=== PATIENT | female | born 1950 | race Caucasian/White ===

== ENCOUNTER → 2021-01-14 10:25 | Outpatient (CLI) | payer MEDICARE, SELFPAY ==
--- NOTE | ~2021-01-14 | MM_ITS ---
EXAMINATION: MM screening sanjeev BI w saúl HISTORY: Screening mammogram TECHNIQUE: Craniocaudal and mediolateral oblique 3-D tomosynthesis images were obtained and synthetic 2-D images were generated. CAD analysis was submitted and interpreted. COMPARISON: 09/12/2016 through 01/25/2009 mammogram examinations BREAST PARENCHYMAL COMPOSITION: There are scattered areas of fibroglandular density. FINDINGS: Scattered benign calcifications are again noted. Grouped indeterminate irregular microcalcifications are noted in the posterior mid inner left breast; diagnostic left mammogram is recommended, with ultrasound if required. Otherwise there is no evidence of suspicious mass, calcification, or architectural distortion to sugg est malignancy in either breast. There has been no suspicious interval change. IMPRESSION: 1. Grouped indeterminate microcalcifications in the posterior mid inner left breast 2. Diagnostic left mammogram with magnification views is recommended, with ultrasound if required BI-RADS Category 0: Incomplete: Needs additional imaging evaluation. Reviewed, dictated and finalized at location A. [employer] IMPRESSION: 1. Grouped indeterminate microcalcifications in the posterior mid inner left br east 2. Diagnostic left mammogram with magnification views is recommended, with ultr asound if required BI-RADS Category 0: Incomplete: Needs additional imaging evaluation.
== END ==
PROVIDERS: PCP Internal Medicine; Visit Provider Internal Medicine
DX: Z12.31 Encounter for screening mammogram for malignant neoplasm of breast (principal); R92.8 Other abnormal and inconclusive findings on diagnostic imaging of breast
CPT/HCPCS: 77063; 77067

== ENCOUNTER 2022-02-09 13:32 | Outpatient (CLI) | payer MEDICARE, SELFPAY ==
--- NOTE | ~2022-02-09 | DEXA_ITS ---
Bone Density Report Name: RAMON QUIGLEY Age: 72 Sex: Female Ethnicity: White Date of : 1950 Indication: postmenopausal; screening for osteoporosis; height loss; hysterectomy; Referring Provider: CLAUDIO SARKAR Study: Bone densitometry was performed. Exam Date: February 09, 2022 Accession number: [id number] Bone Density: Region BMD T-score Z-score Classification AP Spine(L1-L4) 1.150 0.9 3.2 Normal Femoral Neck (Left) 0.758 -0.8 1.1 Normal Total Hip (Left) 0.958 0.1 1.8 Normal Femoral Neck (Right) 0.820 -0.3 1.7 Normal Total Hip (Right) 0.998 0.5 2.1 Normal Total Hip Mean 0.978 0.3 2.0 Normal World Health Organization criteria for BMD impression classify patients as: Normal (T-score at or above -1.0), Osteopenia (T-score between -1.0 and -2.5), or Osteoporosis (T-score at or below -2.5). 10-year Fracture Risk: FRAX not reported because: All T-scores for Spine Total, Hip Total, Femoral Neck at or above -1.0 Clinical Information Provided by Patient: Has used the following medications: Vitamin D Has the following medical conditions: Hysterectomy Patient maximum height was 64 Menopause Age: 58 No regular weight bearing exercise Does not regularly consume dairy products Drinks caffeinated beverages Onset of menses at age 14 Number of children 3 Impression: The patient has normal bone mass. Discussion: BONE DENSITY IS ABOVE THE MINIMUM DESIRABLE LEVEL AT ALL SKELETAL SITES TESTED. This patient?s bone mineral density is above the minimum desirable level (T-score -1.0 or better) at all sites measured. The patient should follow a healthful lifestyle (good nutrition with adequate calcium and vitamin D, and appropriate weight-bearing exercise). Follow-Up: Consider repeating this study in 5 years or sooner if there is some new clinical indication. Reported by: MALIA on 02/09/2022 2:01:00 PM. Reviewed, dictated and finalized at location AZachary MUELLER
== END 2022-02-09 13:33 | disposition home or self-care (01) ==
LOC: ANHIMG 13:36
PROVIDERS: PCP Family Medicine; Visit Provider Internal Medicine Endocrinology, Diabetes & Metabolism
DX: Z78.0 Asymptomatic menopausal state (principal)
CPT/HCPCS: 77080

== ENCOUNTER → 2022-08-10 15:15 | Outpatient (CLI) | payer MEDICARE, SELFPAY ==
--- NOTE | ~2022-08-10 | MM_ITS ---
EXAMINATION: MM screening sanjeev BI w saúl HISTORY: Screening mammogram TECHNIQUE: Craniocaudal and mediolateral oblique 3-D tomosynthesis images were obtained and synthetic 2-D images were generated. CAD analysis was submitted and interpreted. COMPARISON: 01/14/2021, 09/15/2016 bilateral screening mammogram examinations BREAST PARENCHYMAL COMPOSITION: There are scattered areas of fibroglandular density. FINDINGS: Scattered bilateral benign calcifications. Grouped microcalcifications in the posterior mid to lower inner left breast are stable. There is no evidence of suspicious mass, calcification, or ar chitectural distortion to suggest malignancy in either breast. There has been no suspicious interval change. IMPRESSION: 1. No mammographic evidence of malignancy. 2. Recommend routine screening mammography in one year. BI-RADS Category 2: Benign finding(s). Reviewed, dictated and finalized at location A.
== END ==
PROVIDERS: PCP Family Medicine; Visit Provider Family Medicine
DX: Z12.31 Encounter for screening mammogram for malignant neoplasm of breast (principal)
CPT/HCPCS: 77063; 77067

== ENCOUNTER → 2022-11-28 09:39 | Outpatient (CLI) | payer MEDICARE, SELFPAY ==
--- NOTE | ~2022-11-28 | XR_ITS ---
Right Knee Technique: AP, lateral, and sunrise views were obtained. Clinical History: Pain Findings: No fracture or dislocation is seen. Osseous alignment is anatomic. There is medial compartm ent narrowing, with moderate tricompartmental osteophyte formation. There is probable patellofemoral compartment narrowing.. Soft tissues are unremarkable. No joint effusion is seen. Impression: Moderate to advanced tricompartmental osteoarthritis. Reviewed, dictated and finalized at location M. Impression: Moderate to advanced tricompartmental osteoarthritis.
== END ==
PROVIDERS: PCP Family Medicine; Visit Provider Family Medicine
DX: M17.11 Unilateral primary osteoarthritis, right knee (principal)
CPT/HCPCS: 73564

== ENCOUNTER 2023-01-05 09:00 | Outpatient (RCR) | payer MEDICARE, SELFPAY ==
--- NOTE | 2022-12-20 08:54 | OPREHPOC ---
Outpatient Therapy Plan of Care This is a Multidisciplinary Plan of Care that may contain components documented by all disciplines (PT, OT, and ST.) PT Problem 1 PT Problem #1 Knowledge Deficit PT Goal 1 Goal 1* indep with HEP PT Problem 2 PT Problem #2 Pain PT Goal 1 Goal 1* pain rating at worst of 5/10 2* pt report standing/walking tolerance of 60 min PT Problem 3 PT Problem #3 Impaired Strength PT Goal 1 Goal 1* pt able to perform 15 reps of standing and mat exercises with 3# ankle wt 2* single leg standing 5 seconds PT Problem 4 PT Problem #4 Impaired Functional Mobil PT Goal 1 Goal 1* 2 minute walking test distance with wheeled walker 350' 2* up/down 12 steps with bilateral hand railing, indep
--- NOTE | 2022-12-20 08:54 | PTOPEVAL1 ---
Assessment and note entered by Priyanka Zimmerman, PT Evaluation Information Assessment Status Evaluation Diagnosis R knee pain/OA Onset about 1 yr Subjective Information gradual increase in knee pain; chronic issues with R knee pain and had arthroscopy in the past; xray of knee: report states no joint space; had injection in knee recently--did not help pain; ACTIVITY: use large based quad cane when going out in community; does not go into basement-- does laundry; can do home chores, but have to take break, sit and rest about every 45 minutes; does not do any leg exercises; Reported Pain Level Pain Score Self Report Additional Pain Score Comments pain range in the past week: 5- 7/10; lateral knee joint increase pain: up on feet about 45 minutes decrease pain: take tylenol, advil; have not used heat/ice- instruct PRN use; does not have a knee brace instruct on brace PRN for support to knee Assessment PT Clinical Summary Lilia has the diagnosis of R knee pain/OA. Her activity level is limited due to knee pain, limited walking and standing tolerances. And does not go to her basement due to knee pain. Self assessment with LE functional scale score of 63% limitation in activity level. She is using a large base quad cane all of the time. She is considering TKR. With the evaluation: she has a poor walking pattern with the cane--educated and instructed on gait with wheeled walker and rollator; slight decrease knee ROM active in sitting (-5') to 110'; 2 minute walking test distance of 275' with rollator; decreased strength of R hip and knee. Skilled PT services are indicated for modalities to decrease pain; therapeutic exercises to increase R knee ROM and strength, with education to progress HEP and gait training with assistive device. Plan of Care Interventions Electrical Stimulation,Gait Training,Hot Pack/Cold Pack,Manual Therapy,Neuro Re-education,Patient/ Education,Therapeutic Activities, Therapeutic Exercise,Ultrasound,Other Other Interventions taping, IAS
--- NOTE | 2023-01-08 15:06 | PTOPDC ---
Assessment and note entered by Priyanka Zimmerman, PT Disharge Information Assessment PT Clinical Summary PHYSICAL THERAPY DISCHARGE Lilia has received 5 PT sessions. She called today and canceled her remaining appointment, stated released her from therapy. The goals were not assessed. Discharge PT services. Plan of Care PT Services Indicated No
== END 2023-01-08 15:20 | disposition home or self-care (01) ==
LOC: ANHPT 09:00
PROVIDERS: PCP Family Medicine; Visit Provider Orthopaedic Surgery
DX: M25.561 Pain in right knee (principal)
CPT/HCPCS: 97110; 97116; 97140; 97161; 97530

== ENCOUNTER 2023-01-12 11:05 | Outpatient (CLI) | payer MEDICARE, SELFPAY ==
--- NOTE | 2023-01-12 11:07 | ECG_ITS ---
Measurements Intervals Foley Rate: 68 P: 52 NV: 178 QRS: 54 QRSD: 104 T: 44 QT: 387 QTc: 414 Interpretive Statements SINUS RHYTHM INTRAVENTRICULAR CONDUCTION ABNORMALITY BORDERLINE ECG COMPARED TO ECG 05/17/2018 11:39:42 PVCS ARE NOT SEEN Electronically Signed On 01-12-2023 13:36:42 [employer] PROFESSOR by Hilario Lerma M.D.
== END 2023-01-12 11:06 | disposition home or self-care (01) ==
PROVIDERS: PCP Family Medicine; Visit Provider Nurse Practitioner Family
DX: I49.9 Cardiac arrhythmia, unspecified (principal); R94.31 Abnormal electrocardiogram [ECG] [EKG]
CPT/HCPCS: 93005

== ENCOUNTER 2023-09-18 15:30 | Outpatient (CLI) | payer MEDICARE, SELFPAY ==
--- NOTE | ~2023-09-18 | MM_ITS ---
EXAMINATION: MM screening sanjeev BI w saúl HISTORY: Screening TECHNIQUE: Craniocaudal and mediolateral oblique 3-D tomosynthesis images were obtained and synthetic 2-D images were generated. CAD analysis was submitted and interpreted. COMPARISON: Comparison to multiple prior studies sequentially, with oldest reviewed study dated 05/2016. BREAST PARENCHYMAL COMPOSITION: Not dense: There are scattered areas of fibroglandular density. FINDINGS: There are developing group of pleomorphic calcifications in the lower inner quadrant of the left breast. The right breast is stable without evidence for malignancy. IMPRESSION: 1. Developing pleomorphic calcifications, lower inner quadrant of the left breast. 2. Magnification views are recommended. BI-RADS Category 0: Incomplete: Needs additional imaging evaluation. Reviewed, dictated and finalized at location B. IMPRESSION: 1. Developing pleomorphic calcifications, lower inner quadrant of the left [address]. 2. Magnification views are recommended. BI-RADS Category 0: Incomplete: Needs additional imaging evaluation.
== END 2023-09-18 15:31 ==
LOC: MICIMG 15:31
PROVIDERS: PCP Family Medicine; Visit Provider Family Medicine
DX: Z12.31 Encounter for screening mammogram for malignant neoplasm of breast (principal); R92.8 Other abnormal and inconclusive findings on diagnostic imaging of breast
CPT/HCPCS: 77063; 77067

== ENCOUNTER 2023-10-16 09:03 | Outpatient (CLI) | payer MEDICARE, SELFPAY ==
--- NOTE | ~2023-10-16 | MM_ITS ---
EXAMINATION: MM diagnostic mammo unilat LT HISTORY: Follow-up left breast calcifications TECHNIQUE: Additional 3-D tomosynthesis images of the left breast were performed and synthetic 2-D im ages were generated. CAD analysis was submitted and interpreted. COMPARISON: Comparison to multiple prior studies sequentially, with oldest reviewed study dated 05/2016. BREAST PARENCHYMAL COMPOSITION: Not dense: There are scattered areas of fibroglandular density. FINDINGS: There are developing clustered pleomorphic calcifications lower inner quadrant of the left breast, posterior third. There are no suspicious masses or architectural distortion. IMPRESSION: 1. Developing clustered indeterminate left breast calcifications in the lower inner quadrant. 2. Stereotactic left breast biopsy recommended. BI-RADS category 4, suspicious findings. Reviewed, dictated and finalized at location B. IMPRESSION: 1. Developing clustered indeterminate left breast calcifications in the lower i nner quadrant. 2. Stereotactic left breast biopsy recommended. BI-RADS category 4, suspicious findings.
== END 2023-10-16 09:04 | disposition home or self-care (01) ==
LOC: MICIMG 09:03
PROVIDERS: PCP Family Medicine; Visit Provider Family Medicine
DX: R92.0 Mammographic microcalcification found on diagnostic imaging of breast (principal)
CPT/HCPCS: 77065

== ENCOUNTER 2023-12-26 12:42 | Outpatient (CLI) | payer MEDICARE, SELFPAY ==
[2023-12-26 13:15] VITALS: PULSE 75; O2SAT 96
[2023-12-26 13:20] VITALS: PULSE 101; O2SAT 92
[2023-12-26 13:30] VITALS: PULSE 77; O2SAT 95
--- NOTE | 2023-12-26 15:09 | HOMEO2EVAL ---
Evaluation was performed at [facility] Home Oxygen Evaluation RC: Home Oxygen (O2) Evaluation Start: 12/26/23 15:07 Freq: Status: Active Protocol: RPE Activity Type Activity Date Activity User E-sign Co-sign Detail Recorded Client Recorded Date Recorded By Document 12/26/23 13:15 DJO [email or web address] 12/26/23 15:09 DJO Document 12/26/23 13:20 [email or web address] [email or web address] 12/26/23 15:09 DJO Document 12/26/23 13:30 [email or web address] [email or web address] 12/26/23 15:09 DJO 12/26/23 12/26/23 12/26/23 13:15 13:20 13:30 Home O2 Evaluation [Oxygen] -Test Phase Resting Exercise Resting -Oxygen Delivery Room Air Room Air Room Air [Pulse Oximetry] -Pulse Oximetry (90-100 %) 96 92 95 [Pulse Rate] -Pulse Rate (60-100 beats/min) 75 101 H 77 [Evaluation] -Activity Tolerance Good [Charges] -Evaluation Charges O2 Evaluation by Pulmonary
== END 2023-12-26 12:43 | disposition home or self-care (01) ==
PROVIDERS: PCP Family Medicine; Visit Provider Nurse Practitioner Family
DX: R09.02 Hypoxemia (principal)
CPT/HCPCS: 94618

== ENCOUNTER 2024-01-31 08:52 | Outpatient (CLI) | payer MEDICARE, SELFPAY ==
--- NOTE | ~2024-01-31 | MM_ITS ---
MM stereotactic bx LT, MM post biopsy invasive LT, MM stereotactic specimen LT EXAMINATION: MM stereo tactic bx LT, MM post biopsy invasive LT, MM stereotactic specimen L INDICATION: Abnormal calcifications in the left breast. Stereotactic core biopsy is requested evalua te for malignancy.] BREAST PARENCHYMAL COMPOSITION: Dense: The breasts are heterogeneously dense, which may obscure small masses TECHNIQUE AND FINDINGS: The risks and potential benefits of the procedure were discussed with the patient and written informe d consent was obtained. The patient was placed in the prone position clustered at the table with the left breast in craniocaudal compression, and the area of interest was localized and targeted utilizi ng digital imaging with stereotaxis. After sterile preparation of the skin, 1% lidocaine was utilized for local anesthesia at the skin pun cture site and 1% lidocaine with epinephrine was utilized for deeper local anesthesia/is about the bi opsy site. A 9G Eviva vacuum assisted biopsy needle was advanced to the level of the calcification o f interest from a caudal approach utilizing stereotactic guidance and a total of 6 tissue core biopsi es were obtained. A specimen radiograph demonstrates that the calcifications of interest are included within the tissue cores. A tissue marker clip was then placed at the biopsy site. The needle was removed and hemosta sis was achieved. The patient tolerated the procedure well and there is no evidence of significant i mmediate complication. The patient was given verbal as well as written postprocedural instructions p rior to discharge from the department. Tissue cores were submitted to surgical pathology for histolo gic analysis. A 2-view right unilateral digital mammogram was obtained post procedure and this demonstrates that th e tissue marker clip is in expected position.] IMPRESSION: 1. Successful stereotactic biopsy of calcifications in the lower inner quadrant of the left breast w ith post procedure mammogram for marker placement. Please refer to pathology report for histologic a nalysis. Reviewed, dictated and finalized at location B. MANAGER IMPRESSION: 1. Successful stereotactic biopsy of calcifications in the lower inner quadran t of the left breast with post procedure mammogram for marker placement. Pleas e refer to pathology report for histologic analysis. IMPRESSION: 1. Successful stereotactic biopsy of calcifications in the lower inner quadran t of the left breast with post procedure mammogram for marker placement. Pleas e refer to pathology report for histologic analysis.
== END 2024-01-31 08:53 | disposition home or self-care (01) ==
PROVIDERS: PCP Family Medicine; Visit Provider Family Medicine
DX: R92.0 Mammographic microcalcification found on diagnostic imaging of breast (principal); N60.12 Diffuse cystic mastopathy of left breast; N60.11 Diffuse cystic mastopathy of right breast; N62 Hypertrophy of breast
CPT/HCPCS: 19081; 88305

== ENCOUNTER 2024-02-12 13:42 | Outpatient (CLI) | payer MEDICARE, SELFPAY ==
[2024-02-12 14:45] LABS: Influenza A QL RT-PCR Negative (Negative); Influenza B QL RT-PCR Negative (Negative); RSV RNA, RT-PCR Negative (Negative); SARS-CoV-2 RNA PCR Negative (Negative)
== END 2024-02-12 13:43 | disposition home or self-care (01) ==
LOC: ANHLAB 13:44
PROVIDERS: PCP Family Medicine; Visit Provider Physician Assistant
DX: R05.8 Other specified cough (principal)
CPT/HCPCS: 87637

== ENCOUNTER 2024-09-15 09:56 | Outpatient (CLI) | payer MEDICARE, SELFPAY ==
--- NOTE | ~2024-09-15 | DEXA_ITS ---
Bone Density Report Name: RAMON QUIGLEY Age: 74 Sex: Female Ethnicity: White Date of : 1950 Indication: postmenopausal; screening for osteoporosis; height loss; hysterectomy; Referring Provider: VINCE KAPOOR Study: Bone densitometry was performed. Exam Date: September 15, 2024 Accession number: [id number] Bone Density: Region BMD T-score Z-score Classification AP Spine(L1-L4) 1.077 0.3 2.6 Normal Femoral Neck (Left) 0.660 -1.7 0.4 Osteopenia Total Hip (Left) 0.880 -0.5 1.3 Normal Femoral Neck (Right) 0.810 -0.4 1.7 Normal Total Hip (Right) 0.980 0.3 2.1 Normal Total Hip Mean 0.930 -0.1 1.7 Normal World Health Organization criteria for BMD impression classify patients as: Normal (T-score at or above -1.0), Osteopenia (T-score between -1.0 and -2.5), or Osteoporosis (T-score at or below -2.5). 10-year Fracture Risk(1): Major Osteoporotic Fracture 9.9% Hip Fracture 1.9% Reported Risk Factors: [place] (), Neck BMD=0.660, BMI=42.3 (1) FRAX(R) Version 3.08. Fracture probability calculated for an untreated patient. Fracture probability may be lower if the patient has received treatment. Previous Exams: -- Region Exam Age BMD T-score BMD Change BMD Change Date g/cm2 vs Baseline vs Previous -- AP Spine (L1-L4) 09/15/2024 74 1.077 0.3 2.5%# -6.4%* 02/09/2022 72 1.150 0.9 9.5%# 13.4%# 09/15/2016 66 1.014 -0.3 -3.4%* -4.5%* 07/15/2012 62 1.062 0.1 1.1% 7.0%# 02/16/2010 60 0.993 -0.5 -5.5%# -4.4%* 12/18/2007 57 1.039 -0.1 -1.1%# -1.1%# 12/12/2004 54 1.051 0.0 Total Hip(Left) 09/15/2024 74 0.880 -0.5 -28.0%# -8.2%* 02/09/2022 72 0.958 0.1 -21.6%# -16.9%# 09/15/2016 66 1.153 1.7 -5.6%* 4.9%* 07/15/2012 62 1.099 1.3 -10.0%* -1.9%# 02/16/2010 60 1.121 1.5 -8.2%# 0.3% 12/18/2007 57 1.118 1.4 -8.5%# -8.5%# 12/12/2004 54 1.222 2.3 Total Hip(Right) 09/15/2024 74 0.980 0.3 -22.3%# -1.7% 02/09/2022 72 0.998 0.5 -20.9%# -14.4%# 09/15/2016 66 1.166 1.8 -7.5%* -2.3%* 07/15/2012 62 1.193 2.1 -5.4%* 0.5%# 02/16/2010 60 1.188 2.0 -5.8%# -3.2%* 12/18/2007 57 1.227 2.3 -2.7%# -2.7%# 12/12/2004 54 1.261 2.6 -- *Denotes significance at 95% confidence level, LSC for AP Spine = 0.022 g/cm2, LSC for Total Hip = 0.027 g/cm2 # Denotes dissimilar scan types or analysis methods Clinical Information Provided by Patient: Has used the following medications: Vitamin D Has the following medical conditions: Hysterectomy Patient maximum height was 64 Menopause Age: 48 No regular weight bearing exercise Does not regularly consume dairy products Drinks caffeinated beverages Onset of menses at age 13 Number of children 3 Impression: The patient has low bone mass, based on the Left Femoral Neck T-score. The patient has an estimated ten-year risk of hip fracture of 1.9% and an estimated ten-year risk of major fracture of 9.9%, based on the WHO FRAX algorithm. The BMD for the AP Spine (L1-L4) decreased, changing by -6.4% since the last DXA exam. The BMD for the Total Hip(Left) decreased, changing by -8.2% since the last DXA exam. Discussion: BONE DENSITY IS LOW AT ONE OR MORE SKELETAL SITES. This patient's lowest T-score is low at one or more skeletal sites. It meets the World Health Organization's (WHO) criteria for ?low bone mass? (T-score between -1.0 and -2.5). The patient's 10-year risk of fracture as calculated by FRAX is less than the threshold where pharmacological therapy is recommended by the National Osteoporosis Foundation (NOF). However, all treatment decisions require clinical judgment and consideration of individual patient factors, including patient preferences, comorbidities, previous drug use, risk factors not captured in the FRAX model (e.g., frailty, falls, vitamin D deficiency, increased bone turnover, interval significant decline in bone density) and possible under or overestimation of fracture risk by FRAX. The patient should follow a healthful lifestyle (good nutrition with adequate calcium and vitamin D, and appropriate weight-bearing exercise). Follow-Up: Consider repeating this study in 2 years to reassess this patient's status, or sooner if there is some new clinical indication. Reported by: SHANIKA on 09/15/2024 10:41:00 AM. Reviewed, dictated and finalized at location A.
== END 2024-09-15 09:57 | disposition home or self-care (01) ==
LOC: MICIMG 09:56
PROVIDERS: PCP Nurse Practitioner Adult Health; Visit Provider Nurse Practitioner Adult Health
DX: M85.852 Other specified disorders of bone density and structure, left thigh (principal); Z78.0 Asymptomatic menopausal state
CPT/HCPCS: 77080